=== PATIENT | female | born 1960 | race Caucasian/White ===

== ENCOUNTER 2016-09-07 10:42 | Emergency (ER) | payer OTHER, MEDICAID ==
[2015-10-12 13:22] VITALS: Ht 162.6 cm; Wt 34.0 kg
[~2016-09-07] VITALS: Ht 162.6 cm; Wt 34.0 kg
[2016-09-07 10:42] VITALS: BP 117/71; PULSE 61; RESP 15; TEMP 97.4; O2SAT 100
[~2016-09-07 10:42] MED LIST: PRO40 PO; SUCR1TAB78 PO
--- NOTE | 2016-09-07 10:42 | NUR ---
AMY [facility]STORENA from [facility] from home. Patient to ER bed 08 to gown for evaluation. Side rails up.
--- NOTE | 2016-09-07 10:45 | NUR ---
Dr. Ureña at bedside for evaluation
--- NOTE | 2016-09-07 10:45 | NUR ---
Pt c/o acute on chronic jaw pain x2 days. States that she had a jaw fracture a year ago after a tooth extraction, denies recent trauma. Speaking without difficulty. Pt can eat but "hears the clicking sound" in her jaw. No swelling noted. C/O "bruising" under both eyes, and recurrent eye infections. Eyes apperar normal, no redness, no bruising, no drainage. Wearing stocking cap d/t alopecia.
[2016-09-07] MEDS ORDERED: FAMOTIDINE 20 MG TABLET PO ONE (11:00)
[2016-09-07] MEDS ORDERED: KETOROLAC TROMETHAMINE 60 MG/2 ML VIAL IM ONE (11:00)
--- NOTE | 2016-09-07 11:19 | NUR ---
Medicated per MD orders. Sister at bedside. Will continue to monitor.
--- NOTE | 2016-09-07 11:24 | NUR ---
Phleb at bedside for blood draw using 2 pt identifers.
--- NOTE | 2016-09-07 11:31 | NUR ---
Off unit for CT via [facility]
[2016-09-07 11:37] LABS: BASOPHILS # (AUTO) 0.1 K/uL (0.0-0.2); EOSINOPHILS % (AUTO) 0.2 % (0.0-4.0); HEMATOCRIT 34.8 % (36-48); HEMOGLOBIN 11.9 g/dL (12.0-16.0); LYMPHOCYTES # (AUTO) 1.3 K/uL (1.0-5.5); LYMPHOCYTES % (AUTO) 41.6 % (20.5-51.5); MEAN CORPUSCULAR HEMOGLOBIN 33 pg (27-31); MEAN CORPUSCULAR HGB CONC 34 % (32-36); MEAN CORPUSCULAR VOLUME 97 fL (79.0-98.0); MONOCYTES # (AUTO) 0.3 K/uL (0.0-1.0); MONOCYTES % (AUTO) 9.8 % (1.7-9.3); NEUTROPHILS # (AUTO) 1.4 K/uL (1.8-7.7); NEUTROPHILS % (AUTO) 46.4 % (40.0-70.0); PLATELET COUNT (AUTO) 182 K/uL (130-430); RED BLOOD CELL COUNT(AUTO) 3.59 MIL/uL (4.2-6.2); WHITE BLOOD COUNT (AUTO) 3.1 K/uL (4.8-10.8)
--- NOTE | 2016-09-07 11:42 | NUR ---
Back from CT, tolerated well.
[2016-09-07 11:52] LABS: CALCIUM 8.8 mg/dL (8.4-11.0); CREATININE 0.8 mg/dL (0.55-1.30); POTASSIUM 4.6 mmol/L (3.5-5.1)
[2016-09-07 11:57] LABS: ALBUMIN 4.1 g/dL (3.4-4.8); TOTAL BILIRUBIN 0.7 mg/dL (0.0-1.0); TOTAL PROTEIN, SERUM 6.8 g/dL (6.4-8.3)
--- NOTE | 2016-09-07 12:00 | NUR ---
Patient asleep. No acute distress noted. Awaiting ED results
[2016-09-07 13:18] VITALS: BP 118/75; PULSE 65; RESP 16; TEMP 97.6; O2SAT 100
--- NOTE | 2016-09-07 13:18 | NUR ---
Patient given written and verbal discharge instructions and verbalizes understanding. ER MD discussed with patient the results and treatment provided. Patient in stable condition. ID arm band removed. Patient educated on pain management and to follow up with PMD within 2 days. Pain Scale 0/10 Opportunity for questions provided and answered.
== END 2016-09-07 13:18 | disposition home or self-care (01) ==
LOC: SED 10:42
DX: M26.623 Arthralgia of bilateral temporomandibular joint (principal); M81.0 Age-related osteoporosis without current pathological fracture
CPT/HCPCS: 36415; 70486; 80053; 83735; 85025; 96372; 99285; J1885